=== PATIENT | female | born 1970 | race Caucasian/White ===

== ENCOUNTER → 2023-10-15 14:06 | Outpatient (REF) | payer BC, SELFPAY | LOC: WDC 14:06 | PROVIDERS: ATTENDING PHYSICIAN Physician Assistant Surgical; FAMILY PHYSICIAN Family Medicine | DX: Z12.31 Encounter for screening mammogram for malignant neoplasm of breast (principal) | CPT/HCPCS: 77063; 77067 ==

== ENCOUNTER 2024-11-28 14:03 | Emergency (ER) | payer BC, SELFPAY ==
--- NOTE | 2024-11-28 16:08 | ED.GENMED ---
History of Present Illness
General
Chief Complaint: Eye Problems
Source: patient
Exam Limitations: none
Time Seen by Provider: 11/28/24 15:08
Nursing documentation reviewed up to this point in time: agreed with
History of Present Illness
History of Present Illness:
54-year-old female presenting to the emergency department today with concerns of itchiness to her eyelids bilaterally. Has been ongoing multiple weeks. Has been seen by a java lead engineer and was treated with hydrocortisone and also has been seen by
an exceptional children's teacher and was treated for viral conjunctivitis. No improvement with treatments. Ongoing symptoms today.
Past History
Past History
ED Past Medical History: Psychiatric (bipolar depression) and Other (ovarian cysts, tubal ligation, uterine ablation, GERD)
ED Past Surgical History: Gynecological (left oopherectomy)
Social History
Tobacco: Non-smoker
Alcohol: None
Drug: None
Personal:
Living: with family
Employment: Employed
Family History
Family History: Negative Diabetes, Hypertension or CAD
Review of Systems
Review of Systems
Allergies reviewed?: Yes
All Other Systems: ROS reviewed and negative except as documented in HPI and ROS
Phy Exam
Physical Exam
Physical Exam:
GENERAL: Alert , in no apparent distress
EYE: Redness swelling to the eyelids bilaterally inferiorly. No send no obvious changes visual changes to the eye itself normal pupil reaction normal conjunctiva. Pupils equal and reactive
NECK: Supple, no significant adenopathy.
ENT: o/p clr, mmm.
CARDIAC: Regular rate and rhythm .
LUNGS: Clear breath sounds bilaterally, no acute respiratory distress, no wheezes/rales/rhonchi
ABDOMEN: Soft, without focal tenderness, no r/g, no cvat
NEUROLOGICAL: Alert and oriented, no focal neuro deficits
SKIN: Warm and dry, skin intact.
MUSCULOSKELETAL: No edema, well perfused.
PSYCH: Normal and appropriate interaction.
Course
Vital Signs
Initial and Last Documented VS:
Initial Vital Signs
Temp Pulse Resp Pulse Ox
98.4 F 102 18 98
11/28/24 14:05 11/28/24 14:05 11/28/24 14:05 11/28/24 14:05
Last Documented Vital Signs
Temp Pulse Resp Pulse Ox
98.4 F 102 18 98
11/28/24 14:05 11/28/24 14:05 11/28/24 14:05 11/28/24 14:05
MDM/Problems Addressed
MDM/Problems Addressed:
54-year-old female presenting to the emergency department today with concerns of irritation to the eyelids bilaterally. Here this appears to be consistent with likely contact dermatitis concerning it was after false eyelashes that were placed. No
involvement of the eye itself. Normal vision. Plan for symptomatic treatment and otherwise close outpatient follow-up. Return precautions given.
*Critical Care Note
Total Time (30-74mins, 75-104mins- exclusive of procedures): Not Applicable
ED Attending Note
-
Portions of this chart may have been created with voice recognition software.� Occasional wrong word or��sound alike� substitutions may have occurred due to the inherent limitations of voice recognition software.
Discharge Plan
Departure
Patient Disposition: Home (Routine Discharge)
Date of Disposition: 11/28/24
Time of Disposition: 16:08
Patient with high blood pressure during this ER visit?: No
Condition: Good
Covid-19: Not Applicable
Discharge Problem:
Contact dermatitis
Instructions: Contact dermatitis
Prescriptions:
New
methylprednisolone [Medrol (Abdirizak)] 4 mg tablets,dose pack
See Rx Instructions .ROUTE .COMPLEX Qty: 21 0RF
Rx Instructions:
for 6 days
Zyrtec 10 mg capsule
10 mg PO BID 7 Days Qty: 14 0RF
triamcinolone acetonide 0.025 % ointment
1 applic topical BID Qty: 15 0RF
No Action
Fish Oil 120-180 mg Capsule
1 cap PO DAILY
celecoxib [Celebrex] 200 mg capsule
200 mg PO DAILY Qty: 14 0RF
hydrocodone-acetaminophen 5-325 mg tablet
1 tab PO Q6H PRN (Reason: 1 tab moderate pain or 2 if severe) Qty: 30 0RF
Rx Instructions:
Dx orthopedic surgery
ongoing therapy
famotidine [famotidine] 20 mg tablet
20 mg PO HS Qty: 30 0RF
mupirocin 2 % ointment
1 applic topical BID Qty: 1 0RF
Patient Comments:
started treatment Saturday05/06/22 and was taking BID. last took at home 05/09/22 in am
ondansetron [ondansetron] 4 mg tablet,disintegrating
4 mg PO Q6H PRN (Reason: n/v) Qty: 20 1RF
tizanidine [Zanaflex] 2 mg capsule
2 mg PO HS PRN (Reason: muscle spasticity) Qty: 7 0RF
Rx Instructions:
muscle pain/sleep
multivitamin Capsule
1 cap PO DAILY
aspirin 325 mg capsule
325 mg PO DAILY Qty: 30 0RF
Rx Instructions:
Take daily x4 weeks for blood clot prevention.
acetaminophen 325 mg capsule
650 mg PO Q4H PRN (Reason: mild pain) Qty: 30 0RF
Rx Instructions:
Do not exceed >4000 mg daily.
1 [place] tab = 325 mg of Tylenol.
docusate sodium [Colace] 100 mg capsule
100 mg PO BID Qty: 30 0RF
senna 8.6 mg capsule
17.2 mg PO BID Qty: 30 0RF
lamotrigine [Lamictal] 200 MG tablet
200 mg PO HS Qty: 1 0RF
quetiapine [Seroquel] 200 MG tablet
200 mg PO HS Qty: 1 0RF
Vitamin B-12 50 mcg Tablet
50 mcg PO DAILY Qty: 1 0RF
omeprazole 10 mg Capsule,Delayed Release(Dr/Ec)
10 mg PO HS Qty: 1 0RF
Vitamin C 100 mg Tablet
100 mg PO DAILY Qty: 1 0RF
cholecalciferol (vitamin D3) [Vitamin D3] 125 mcg (5,000 unit) Tablet
125 mcg PO DAILY Qty: 1 0RF
Referrals:
Wes Medina DO [Family Provider] -
Activity Restrictions/Additional Instructions:
You came to the emergency department today with concerns of skin changes below your eye. Please use the prescribed occasions to help with symptoms and otherwise follow-up closely with your java lead engineer. Return for any worsening, new or concerning
symptoms.
Interventions
Interventions:
*Risk Screen - Suicide Last Done: 11/28/24 14:05
*General Assessment Last Done: 11/28/24 14:05
*Neglect/Abuse Screening Last Done: 11/28/24 14:05
*ED- Fall Risk Assessment Last Done: 11/28/24 14:05
*ED COVID-19 Vaccine History Last Done: 11/28/24 14:05
*Nursing Disposition Last Done: 11/28/24 16:32
Discharge Date and Time
Discharge Date/Time: 11/28/24 16:33
Print Language: LAO
== END 2024-11-28 16:33 | disposition home or self-care (01) ==
LOC: EMR 14:03
PROVIDERS: EMERGENCY PHYSICIAN Emergency Medicine; FAMILY PHYSICIAN Family Medicine
DX: L25.9 Unspecified contact dermatitis, unspecified cause (principal); F31.9 Bipolar disorder, unspecified; K21.9 Gastro-esophageal reflux disease without esophagitis; F32.A Depression, unspecified; Z79.82 Long term (current) use of aspirin; Z88.6 Allergy status to analgesic agent; Z88.5 Allergy status to narcotic agent; Z91.018 Allergy to other foods
CPT/HCPCS: 99283